=== PATIENT | male | born 1965 | race Caucasian/White ===

== ENCOUNTER 2022-06-17 19:01 | Outpatient (CLI) | payer OTHER, SELFPAY ==
--- NOTE | 2022-06-30 09:00 | W.PM.SLEEP ---
Sleep Study Details Details Interpreting Provider: José Carrero MD Date of Sleep Study: 06/17/22 Sleep Study Details: STUDY TYPE:? Home ? BMI:? 42.4 ORDERING PROVIDER:? Lala INDICATION:? Concerns about sleep apnea ? SLEEP SUMMARY:? Monitor time 472 minutes RESPIRATORY SUMMARY:? AHI 16.8 with minimal positional variation Low oxygen 87 0.2% of study oxygen less than 90% Snoring% 78 PERIODIC LIMB MOVEMENTS OF SLEEP:? Not recorded CARDIAC:? [id number], mean 67.5 IMPRESSION:? Moderate obstructive sleep apnea RECOMMENDATION: AutoSet CPAP pressure 4-17, weight loss is also recommended. The dental appliance would be a potential treatment option
== END 2022-06-17 19:02 | disposition home or self-care (01) ==
LOC: SLEEP 19:03
PROVIDERS: PCP Family Medicine; Visit Provider Otolaryngology
DX: G47.33 Obstructive sleep apnea (adult) (pediatric) (principal)
CPT/HCPCS: 95806

== ENCOUNTER 2023-10-20 11:15 | Outpatient (CLI) | payer OTHER, SELFPAY | END 2023-10-20 11:16 | disposition home or self-care (01) | PROVIDERS: PCP Family Medicine; Visit Provider Family Medicine | DX: Z12.5 Encounter for screening for malignant neoplasm of prostate (principal); Z13.220 Encounter for screening for lipoid disorders; Z13.1 Encounter for screening for diabetes mellitus | CPT/HCPCS: 80048; 80061; G0103 ==

== ENCOUNTER 2025-06-08 11:31 | Outpatient (CLI) | payer OTHER, SELFPAY | END 2025-06-08 11:32 | disposition home or self-care (01) | PROVIDERS: PCP Family Medicine; Visit Provider Family Medicine | DX: K76.0 Fatty (change of) liver, not elsewhere classified (principal); Z12.5 Encounter for screening for malignant neoplasm of prostate; Z13.6 Encounter for screening for cardiovascular disorders | CPT/HCPCS: 80053; 80061; G0103 ==